=== PATIENT | male | born 1940 | race Caucasian/White ===

== ENCOUNTER 2021-06-25 13:24 | Inpatient (IN) | payer BC, OTHER ==
[~2021-06-25] VITALS: Ht 177.8 cm; Wt 92.2 kg
[2021-06-25] MEDS ORDERED: MORPHINE SULFATE 4 MG/ML CPJ (NOT FOR IM USE) IV ONE (14:00)
[2021-06-25] MEDS ORDERED: SODIUM CHLORIDE 0.9% 1,000 ML IV ONE (14:00)
[2021-06-25] MEDS ORDERED: ONDANSETRON HCL 4MG/2ML INJ IV ONE (14:00)
[2021-06-25 14:48] LABS: CHLORIDE 109 mEq/L (98-107)
[2021-06-25 14:52] LABS: INR 1.2; MEAN CORPUSCULAR HEMOGLOBIN 34.6 pg (28.0-32.0); MEAN CORPUSCULAR VOLUME 105.8 fL (80.0-94.0); MEAN PLATELET VOLUME 9.4 fl (7.4-10.4); PLATELET 198 x1000/uL (130-400); PROTHROMBIN TIME 12.3 sec (9.6-11.0); RED BLOOD CELL COUNT 1.59 mill/uL (4.7-6.1); RED CELL DISTRIBUTION WIDTH 17.7 % (11.6-14.6)
[2021-06-25 14:53] LABS: ETHANOL BLOOD < 10 mg/dL
[2021-06-25 15:00] LABS: HEMOGLOBIN. 5.5 g/dL (14.0-18.0)
[2021-06-25 15:01] LABS: HEMATOCRIT. 16.9 % (42.0-52.0)
[2021-06-25] MEDS ORDERED: PIPERACILLIN/TAZ 3.375G PREMIX 50 ML IV NR (15:15)
[2021-06-25] MEDS ORDERED: PIPERACILLIN/TAZOBACTAM 3.375GM/50ML PREMIX IV ONE (15:15)
[2021-06-25] MEDS ORDERED: SODIUM CHLORIDE 0.9% 500 ML IV NR (15:15)
[2021-06-25] MEDS ORDERED: VANCOMYCIN 1 G PREMIX 200 ML IV NR (15:15)
[2021-06-25 16:25] LABS: NUCLEATED RED BLOOD CELLS 10 /100 WBC; PLATELET ESTIMATE NORMAL
[2021-06-25] MEDS ORDERED: KCL 20MEQ/100ML PREMIX 100 ML IV NR (18:00)
[2021-06-25 18:40] LABS: CLARITY URINE CLEAR (CLEAR); COLOR URINE YELLOW (YELLOW); KETONES URINE NEGATIVE (NEGATIVE); LEUKOCYTE ESTERASE URINE NEGATIVE (NEGATIVE); NITRITE URINE NEGATIVE (NEGATIVE); OCCULT BLOOD URINE NEGATIVE (NEGATIVE); PROTEIN URINE TRACE (NEGATIVE); SPECIFIC GRAVITY URINE 1.018 (1.005-1.030)
[2021-06-25 18:53] LABS: *AMPHETAMINES SCREEN URINE NEGATIVE (NEGATIVE); *BARBITURATES SCREEN URINE NEGATIVE (NEGATIVE)
[2021-06-25 18:54] LABS: *BENZODIAZEPINES SCREEN URINE NEGATIVE (NEGATIVE); *COCAINE SCREEN URINE NEGATIVE (NEGATIVE); CANNABINOID URINE SCREEN NEGATIVE (NEGATIVE); METHADONE URINE SCREEN NEGATIVE (NEGATIVE); OPIATES URINE SCREEN NEGATIVE (NEGATIVE); PHENCYCLIDINE URINE SCREEN NEGATIVE (NEGATIVE)
[2021-06-26] VITALS (9 sets, daily range): BP systolic 100–113; BP diastolic 51–62
[2021-06-26] MEDS ORDERED: DEXTROSE 50% WATER 50ML SYRINGE IV PRN (03:30)
[2021-06-26] MEDS ORDERED: KCL 10MEQ/50ML PREMIX 50 ML IV ONE ×3 (03:45→05:45)
[2021-06-26] MEDS ORDERED: ACETAMINOPHEN 325MG TABLET PO PRN (03:45)
[2021-06-26] MEDS ORDERED: DIPHENHYDRAMINE 50MG/ML VIAL IV PRN (03:45)
[2021-06-26] MEDS ORDERED: PRIL20 PO (04:57)
[2021-06-26] MEDS ORDERED: BENA20TA10 PO (04:57)
[2021-06-26] MEDS ORDERED: ZOLP10TA2 PO (04:57)
[2021-06-26] MEDS ORDERED: METF-414 PO (04:57)
[2021-06-26] MEDS ORDERED: FAMO20TA8 PO (04:57)
[2021-06-26] MEDS ORDERED: SIMV5TAB58 PO (04:57)
[2021-06-26] MEDS ORDERED: ASPI-1497 PO (04:57)
[2021-06-26] MEDS ORDERED: POTASSIUM CHLORIDE INJ 30 MEQ in DEXT 5% WATER 250 ML IV NR (05:00)
[2021-06-26] MEDS: INSULIN LISPRO 100 UNITS/ML SUBCUT SCH ×3 (06:00→17:57)
[2021-06-26] MEDS: PANTOPRAZOLE SODIUM 40 MG/VIAL IV SCH (06:08)
[2021-06-26] MEDS: BLOOD SUGAR DIAGNOSTIC STRIP TEST SCH ×4 (06:21→23:19)
[2021-06-26] MEDS: DEXT 5%/0.45% NACL KCL 20MEQ/L 1,000 ML IV SCH ×3 (09:01→23:19)
[2021-06-26] MEDS: PIPERACILLIN/TAZOBACTAM 3.375 G in DEXTROSE 5% WATER 50 ML IV SCH ×3 (13:00→23:19)
[2021-06-26 13:17] LABS: HEMATOCRIT. 25.3 % (42.0-52.0); HEMOGLOBIN. 7.8 g/dL (14.0-18.0); MEAN PLATELET VOLUME 9.7 fl (7.4-10.4); PLATELET 170 x1000/uL (130-400); RED BLOOD CELL COUNT 2.51 mill/uL (4.7-6.1); RED CELL DISTRIBUTION WIDTH 17.8 % (11.6-14.6)
[2021-06-26 13:29] LABS: CHLORIDE 115 mEq/L (98-107)
[2021-06-26 13:31] LABS: INR 1.1; PROTHROMBIN TIME 11.6 sec (9.6-11.0)
[2021-06-26] MEDS: VANCOMYCIN 1 G PREMIX 200 ML IV SCH (14:27)
[2021-06-26 18:09] LABS: HEMATOCRIT. 24.1 % (42.0-52.0); HEMOGLOBIN. 7.8 g/dL (14.0-18.0); MEAN CORPUSCULAR HEMOGLOBIN 32.1 pg (28.0-32.0); MEAN CORPUSCULAR VOLUME 99.3 fL (80.0-94.0); MEAN PLATELET VOLUME 9.5 fl (7.4-10.4); PLATELET 166 x1000/uL (130-400); RED BLOOD CELL COUNT 2.43 mill/uL (4.7-6.1); RED CELL DISTRIBUTION WIDTH 17.8 % (11.6-14.6)
[2021-06-26 18:12] LABS: TOTAL IRON BINDING CAPACITY 282 ug/dL (250-450)
[2021-06-26 18:20] LABS: FERRITIN 335 ng/mL (22-322)
[2021-06-26 22:03] LABS: NUCLEATED RED BLOOD CELLS 15 /100 WBC; PLATELET ESTIMATE NORMAL
[2021-06-26 22:25] LABS: NUCLEATED RED BLOOD CELLS 12 /100 WBC; PLATELET ESTIMATE NORMAL
[2021-06-26 23:24] LABS: VITAMIN B12 SERUM > 2000.0 pg/mL (211-911)
[2021-06-27] VITALS: BP 112/58
[2021-06-27 04:00] VITALS: BP 103/58
[2021-06-27] MEDS: DEXT 5%/0.45% NACL KCL 20MEQ/L 1,000 ML IV SCH ×2 (04:00→16:27)
[2021-06-27] MEDS: PIPERACILLIN/TAZOBACTAM 3.375 G in DEXTROSE 5% WATER 50 ML IV SCH ×4 (05:43→22:54)
[2021-06-27] MEDS: INSULIN LISPRO 100 UNITS/ML SUBCUT SCH ×4 (06:00→16:28)
[2021-06-27] MEDS: BLOOD SUGAR DIAGNOSTIC STRIP TEST SCH ×3 (06:00→16:28)
[2021-06-27] MEDS: VANCOMYCIN 1 G PREMIX 200 ML IV SCH (06:42)
[2021-06-27 07:54] LABS: CHLORIDE 112 mEq/L (98-107)
[2021-06-27 07:59] LABS: HEMATOCRIT. 26.2 % (42.0-52.0); HEMOGLOBIN. 8.2 g/dL (14.0-18.0); MEAN CORPUSCULAR HEMOGLOBIN 31.3 pg (28.0-32.0); MEAN CORPUSCULAR VOLUME 100.4 fL (80.0-94.0); MEAN PLATELET VOLUME 10.1 fl (7.4-10.4); PLATELET 189 x1000/uL (130-400); RED BLOOD CELL COUNT 2.61 mill/uL (4.7-6.1); RED CELL DISTRIBUTION WIDTH 18.3 % (11.6-14.6)
[2021-06-27 08:00] VITALS: BP 122/64
[2021-06-27] MEDS: PANTOPRAZOLE SODIUM 40 MG/VIAL IV SCH (09:30)
[2021-06-27] MEDS ORDERED: ONDANSETRON HCL 4MG/2ML INJ IV PRN (14:15)
[2021-06-27] MEDS ORDERED: HYDRALAZINE 20MG/ML VIAL IV PRN (14:15)
[2021-06-27] MEDS ORDERED: IPRATROPIUM/ALBUTEROL 0.5-3(2.5)MG/3ML NEB HHN PRN (14:15)
[2021-06-27] MEDS ORDERED: MORPHINE SULFATE 2 MG/ML CPJ (NOT FOR IM USE) IV PRN (14:15)
[2021-06-27] MEDS ORDERED: LACTULOSE 20G/30ML UDC PO PRN (14:15)
[2021-06-27] MEDS ORDERED: BISACODYL 10MG SUPP PR PRN (14:15)
[2021-06-27 15:48] LABS: HEMATOCRIT 24.9 % (42.0-52.0); HEMOGLOBIN 7.8 g/dL (14.0-18.0)
[2021-06-27 20:00] VITALS: BP 111/64
[2021-06-27] MEDS: VANCOMYCIN 1250MG in DEXTROSE 5% WATER 250ML IV SCH (20:27)
[2021-06-27 22:35] LABS: NUCLEATED RED BLOOD CELLS 11 /100 WBC; PLATELET ESTIMATE NORMAL
[2021-06-28] VITALS: BP 101/53
[2021-06-28] MEDS: DEXT 5%/0.45% NACL KCL 20MEQ/L 1,000 ML IV SCH ×3 (01:39→22:54)
[2021-06-28] MEDS: INSULIN LISPRO 100 UNITS/ML SUBCUT SCH ×3 (05:43→12:00)
[2021-06-28] MEDS: BLOOD SUGAR DIAGNOSTIC STRIP TEST SCH ×3 (05:43→12:17)
[2021-06-28 05:46] LABS: HEMATOCRIT. 27.6 % (42.0-52.0); HEMOGLOBIN. 8.5 g/dL (14.0-18.0); MEAN CORPUSCULAR HEMOGLOBIN 30.9 pg (28.0-32.0); MEAN CORPUSCULAR VOLUME 100.7 fL (80.0-94.0); MEAN PLATELET VOLUME 9.9 fl (7.4-10.4); PLATELET 212 x1000/uL (130-400); RED BLOOD CELL COUNT 2.74 mill/uL (4.7-6.1); RED CELL DISTRIBUTION WIDTH 18.1 % (11.6-14.6)
[2021-06-28] MEDS: PIPERACILLIN/TAZOBACTAM 3.375 G in DEXTROSE 5% WATER 50 ML IV SCH ×3 (05:47→16:31)
[2021-06-28 05:54] LABS: INR 1.1; PROTHROMBIN TIME 11.8 sec (9.6-11.0)
[2021-06-28 06:31] LABS: CHLORIDE 108 mEq/L (98-107)
[2021-06-28] MEDS: PANTOPRAZOLE SODIUM 40 MG/VIAL IV SCH (08:53)
[2021-06-28] MEDS: VANCOMYCIN 1250MG in DEXTROSE 5% WATER 250ML IV SCH ×2 (08:55→20:34)
[2021-06-28] MEDS ORDERED: MIDAZOLAM HCL 2 MG/2 ML VIAL IV PRN (10:45)
[2021-06-28] MEDS ORDERED: FENTANYL CITRATE/PF 50MCG/ML 2ML VIAL ONE (10:51)
[2021-06-28] MEDS ORDERED: MIDAZOLAM HCL 5 MG/5 ML VIAL ONE (10:51)
[2021-06-28] MEDS ORDERED: POTASSIUM CHLORIDE INJ 40 MEQ in DEXT 5% WATER 250 ML IV NR (12:00)
[2021-06-28 13:08] LABS: NUCLEATED RED BLOOD CELLS 1 /100 WBC
[2021-06-28 13:09] LABS: PLATELET ESTIMATE NORMAL
[2021-06-29] MEDS: BLOOD SUGAR DIAGNOSTIC STRIP TEST SCH ×4 (00:27→16:58)
[2021-06-29] MEDS: PIPERACILLIN/TAZOBACTAM 3.375 G in DEXTROSE 5% WATER 50 ML IV SCH ×5 (00:28→22:24)
[2021-06-29] MEDS: INSULIN LISPRO 100 UNITS/ML SUBCUT SCH ×4 (06:00→16:58)
[2021-06-29 06:56] LABS: CHLORIDE 106 mEq/L (98-107)
[2021-06-29 07:01] LABS: HEMATOCRIT. 28.2 % (42.0-52.0); HEMOGLOBIN. 8.7 g/dL (14.0-18.0); MEAN CORPUSCULAR HEMOGLOBIN 31.4 pg (28.0-32.0); MEAN CORPUSCULAR VOLUME 101.7 fL (80.0-94.0); MEAN PLATELET VOLUME 9.6 fl (7.4-10.4); PLATELET 258 x1000/uL (130-400); RED BLOOD CELL COUNT 2.77 mill/uL (4.7-6.1)
[2021-06-29 08:00] VITALS: BP 137/87
[2021-06-29] MEDS: DEXT 5%/0.45% NACL KCL 20MEQ/L 1,000 ML IV SCH ×2 (08:48→17:12)
[2021-06-29] MEDS: VANCOMYCIN 1250MG in DEXTROSE 5% WATER 250ML IV SCH ×2 (08:48→20:49)
[2021-06-29] MEDS: PANTOPRAZOLE SODIUM 40 MG/VIAL IV SCH (08:48)
[2021-06-29 12:00] VITALS: BP 116/70
[2021-06-29 15:56] LABS: PLATELET ESTIMATE NORMAL
[2021-06-29 20:00] VITALS: BP 120/80
[2021-06-30] VITALS: BP 130/77
[2021-06-30] MEDS: BLOOD SUGAR DIAGNOSTIC STRIP TEST SCH ×5 (00:27→23:13)
[2021-06-30] MEDS: INSULIN LISPRO 100 UNITS/ML SUBCUT SCH ×5 (00:50→23:13)
[2021-06-30] MEDS: DEXT 5%/0.45% NACL KCL 20MEQ/L 1,000 ML IV SCH ×3 (05:15→22:53)
[2021-06-30] MEDS: PIPERACILLIN/TAZOBACTAM 3.375 G in DEXTROSE 5% WATER 50 ML IV SCH ×4 (05:15→22:53)
[2021-06-30 06:39] LABS: CHLORIDE 106 mEq/L (98-107)
[2021-06-30 06:43] LABS: HEMATOCRIT. 30.5 % (42.0-52.0); HEMOGLOBIN. 9.5 g/dL (14.0-18.0); MEAN CORPUSCULAR HEMOGLOBIN 31.4 pg (28.0-32.0); MEAN CORPUSCULAR VOLUME 100.6 fL (80.0-94.0); MEAN PLATELET VOLUME 9.3 fl (7.4-10.4); PLATELET 276 x1000/uL (130-400); RED BLOOD CELL COUNT 3.03 mill/uL (4.7-6.1); RED CELL DISTRIBUTION WIDTH 18.8 % (11.6-14.6)
[2021-06-30 08:00] VITALS: BP 125/72
[2021-06-30] MEDS: PANTOPRAZOLE SODIUM 40 MG/VIAL IV SCH (09:21)
[2021-06-30] MEDS: VANCOMYCIN 1250MG in DEXTROSE 5% WATER 250ML IV SCH ×2 (09:21→19:38)
[2021-06-30 12:00] VITALS: BP 124/77
[2021-06-30 16:00] VITALS: BP 107/60
[2021-06-30 17:43] LABS: NUCLEATED RED BLOOD CELLS 3 /100 WBC; PLATELET ESTIMATE NORMAL
[2021-06-30 20:00] VITALS: BP 122/62
[2021-07-01] VITALS: BP 117/63
[2021-07-01] MEDS: PIPERACILLIN/TAZOBACTAM 3.375 G in DEXTROSE 5% WATER 50 ML IV SCH (05:06)
[2021-07-01] MEDS: INSULIN LISPRO 100 UNITS/ML SUBCUT SCH ×3 (05:28→16:36)
[2021-07-01] MEDS: BLOOD SUGAR DIAGNOSTIC STRIP TEST SCH ×3 (05:29→16:36)
[2021-07-01 08:00] VITALS: BP 139/91
[2021-07-01] MEDS: DEXT 5%/0.45% NACL KCL 20MEQ/L 1,000 ML IV SCH (10:09)
[2021-07-01] MEDS: PANTOPRAZOLE SODIUM 40 MG/VIAL IV SCH (10:09)
[2021-07-01] MEDS: VANCOMYCIN 1250MG in DEXTROSE 5% WATER 250ML IV SCH ×2 (10:09→20:45)
[2021-07-01 12:00] VITALS: BP 123/70
[2021-07-01 12:32] VITALS: BP 139/91
[2021-07-01 13:18] LABS: HEMATOCRIT. 28.6 % (42.0-52.0); HEMOGLOBIN. 8.9 g/dL (14.0-18.0); MEAN CORPUSCULAR HEMOGLOBIN 31.4 pg (28.0-32.0); MEAN CORPUSCULAR VOLUME 100.5 fL (80.0-94.0); MEAN PLATELET VOLUME 8.9 fl (7.4-10.4); PLATELET 330 x1000/uL (130-400); RED BLOOD CELL COUNT 2.85 mill/uL (4.7-6.1); RED CELL DISTRIBUTION WIDTH 19.4 % (11.6-14.6)
[2021-07-01 13:55] LABS: CHLORIDE 106 mEq/L (98-107)
[2021-07-01 14:24] LABS: PLATELET ESTIMATE NORMAL
[2021-07-01] MEDS ORDERED: POTASSIUM CHLORIDE 20MEQ TABLET SR PO NR (15:00)
[2021-07-01 20:00] VITALS: BP 125/65
[2021-07-02] VITALS: BP 123/66
[2021-07-02] MEDS: BLOOD SUGAR DIAGNOSTIC STRIP TEST SCH ×4 (00:32→17:47)
[2021-07-02] MEDS: DEXT 5%/0.45% NACL KCL 20MEQ/L 1,000 ML IV SCH ×3 (03:43→15:11)
[2021-07-02] MEDS: INSULIN LISPRO 100 UNITS/ML SUBCUT SCH ×4 (05:30→17:47)
[2021-07-02 05:40] LABS: CHLORIDE 105 mEq/L (98-107)
[2021-07-02 06:07] LABS: HEMATOCRIT. 30.5 % (42.0-52.0); HEMOGLOBIN. 9.6 g/dL (14.0-18.0); MEAN CORPUSCULAR HEMOGLOBIN 31.1 pg (28.0-32.0); MEAN CORPUSCULAR VOLUME 99.1 fL (80.0-94.0); PLATELET 377 x1000/uL (130-400); RED BLOOD CELL COUNT 3.08 mill/uL (4.7-6.1); RED CELL DISTRIBUTION WIDTH 18.3 % (11.6-14.6)
[2021-07-02 08:00] VITALS: BP 142/82
[2021-07-02] MEDS ORDERED: PANTOPRAZOLE 40MG DR TABLET PO SCH (09:00)
[2021-07-02 12:00] VITALS: BP 123/71
[2021-07-02 16:00] VITALS: BP 111/60
[2021-07-02 16:31] LABS: PLATELET ESTIMATE NORMAL
[2021-07-02 18:38] VITALS: BP 111/60
== END 2021-07-02 21:55 | disposition short-term general hospital (02) | DRG 871 ==
LOC: ER 13:24 → MICUSO 19:21 → EDBEDREQSVC 19:45 → EDBEDREQ 19:45 → EDBEDREQTM 19:45 → 7EST 23:50
PROVIDERS: ADMIT Internal Medicine; ATTEND Internal Medicine
PROC: 30233N1 Transfusion of Nonautologous Red Blood Cells into Peripheral Vein, Percutaneous Approach (ICD-10-PCS; 2021-06-25)
PROC: 0DB78ZX Excision of Stomach, Pylorus, Via Natural or Artificial Opening Endoscopic, Diagnostic (ICD-10-PCS; principal; 2021-06-28)
DX: A41.9 Sepsis, unspecified organism (principal); K29.71 Gastritis, unspecified, with bleeding; K57.11 Diverticulosis of small intestine without perforation or abscess with bleeding; E44.0 Moderate protein-calorie malnutrition; N39.0 Urinary tract infection, site not specified; C92.00 Acute myeloblastic leukemia, not having achieved remission; E87.2 Acidosis; D50.9 Iron deficiency anemia, unspecified; E87.6 Hypokalemia; K80.20 Calculus of gallbladder without cholecystitis without obstruction; D53.9 Nutritional anemia, unspecified; E11.9 Type 2 diabetes mellitus without complications; I10 Essential (primary) hypertension; K44.9 Diaphragmatic hernia without obstruction or gangrene; N28.1 Cyst of kidney, acquired; N40.0 Benign prostatic hyperplasia without lower urinary tract symptoms; E66.9 Obesity, unspecified; Z20.822 Contact with and (suspected) exposure to COVID-19; Z79.84 Long term (current) use of oral hypoglycemic drugs; Z82.49 Family history of ischemic heart disease and other diseases of the circulatory system; Z79.899 Other long term (current) drug therapy; Z68.29 Body mass index [BMI] 29.0-29.9, adult; K25.9 Gastric ulcer, unspecified as acute or chronic, without hemorrhage or perforation
CPT/HCPCS: 36415; 71045; 74176; 76705; 80048; 80053; 80076; 80202; 80305; 80320; 81003; 82247; 82248; 82607; 82728; 82746; 82962; 83036; 83540; 83550; 83605; 83735; 84145; 84153; 84484; 85014; 85018; 85025; 85044; 85384; 86850; 86900; 86920; 87426; 88305; 88312; 88313; 93005; 93970; 97116; 97162; 99291; C1893; C9113; J1815; J2250; J2270; J2405; J2543; J3010; J3370; J3480; J7030; J7040; J7060; P9016; G0103; G0480